=== PATIENT | male | born 1980 | race Caucasian/White ===

== ENCOUNTER 2018-03-15 04:45 | Emergency (ER) | payer BC ==
[~2018-03-15] VITALS: Ht 190.5 cm; Wt 230.2 kg
[~2018-03-15 04:45] MED LIST: AXIRON90 ML TD; ERGOCALCIF50000 UNIT PO; IRBESARTAN-HCT1 EACH PO; IRON256 MG PO; LANSOPRAZOLE30 MG PO; VICTOZA0.6 MG/0.1 SC
[2018-03-15 05:43] LABS: HEMATOCRIT 39.6 % (38.0-50.0); HEMOGLOBIN 13.1 G/DL (12.5-16.6); MCH 25.8 PG (29.0-34.0); MCHC 33.1 G/DL (30.0-36.0); PLATELET COUNT 305 K/uL (156-360); RBC DIS.WIDTH-SD 42.8 % (39-53); RED BLOOD COUNT 5.08 M/uL (4.00-5.50); WHITE BLOOD COUNT 11.5 K/uL (4.1-10.2)
[2018-03-15 05:50] LABS: CHLORIDE 102 mEq/L (99-109); POTASSIUM 4.1 mEq/L (3.7-5.4); SODIUM 139 mEq/L (136-147)
[2018-03-15 05:51] LABS: GLUCOSE 120 mg/dL (70-99)
[2018-03-15 05:55] LABS: GFR ESTIMATE (CALCULATED) > 59 mL/min/ (58.99-99999)
[2018-03-15 05:56] LABS: UREA NITROGEN (BUN) 21 mg/dL (9-23)
[2018-03-15 06:48] LABS: APPEARANCE SL.HAZY ((CLEAR)); BILIRUBIN NEGATIVE; BLOOD LARGE; COLOR YELLOW ((YELLOW)); GLUCOSE (STRIP) NEGATIVE; KETONES NEGATIVE; LEUKOCYTES TRACE; NITRITE NEGATIVE; PROTEIN (STRIP) 30; UROBILINOGEN 0.2 MG/DL (0.2-1.0)
[2018-03-15 07:13] LABS: BACTERIA NONE SEEN /HPF; EPITHELIAL CELLS 1+ /HPF; MUCUS TRACE /LPF; RED BLOOD CELLS TNTC /HPF (0-5); UCUL ADDED? YES
[2018-03-15] MEDS ORDERED: PERCOCET 5/31 TABLET PO (09:04)
[2018-03-15] MEDS ORDERED: LEVAQUIN500 MG PO (09:04)
[2018-03-15 10:43] VITALS: BP 150/70
[2018-03-15] MEDS ORDERED: HYZAAR 50-121 TABLET PO (10:46)
[2018-03-15] MEDS ORDERED: TRULICITY0.75 MG/0. SC (10:47)
== END 2018-03-15 10:43 | disposition home or self-care (01) ==
LOC: EME 04:45
PROVIDERS: Emergency Medicine
DX: N39.0 Urinary tract infection, site not specified (principal); R10.9 Unspecified abdominal pain; D64.9 Anemia, unspecified
CPT/HCPCS: 74018; 76770; 80048; 81003; 85027; 87086; 99281; 99284; J0696